=== PATIENT | male | born 1960 | race African-American/Black ===

== ENCOUNTER 2020-04-10 07:37 | Outpatient (CLI) | payer MEDICARE, MEDICAID, OTHER ==
[2020-04-10 14:15] LABS: #Eosinphils 0.1 thou/uL (0.0-0.7); #Lymphocytes 1.6 thou/uL (1.20-3.40); #Monocytes 0.7 thou/uL (0.11-0.59); #Neutrophils 5.1 thou/uL (1.40-6.50); %Basophils 0.2 % (0.0-1.0); %Eosinophils 1.1 % (0.0-10.0); %Lymphocytes 21.7 % (21.0-51.0); %Monocytes 8.7 % (0.0-10.0); %Neutrophils 68.3 % (42.0-75.0); Mean Corpuscular HGB CONC 32.1 g/dL (32.0-36.0); Mean Corpuscular Hemoglobin 29.2 pg (27.0-31.0); Mean Corpuscular Volume 91.1 fL (78.0-98.0); Mean Platelet Volume 9.3 fL (7.4-10.4); Platelet Count 260 thou/uL (130-400); RBC Distribution Width 13.2 % (11.5-14.5); Red Blood Cell (RBC) Count 4.44 mill/uL (4.70-6.10); White Blood Cell (WBC) Count 7.4 thou/uL (4.8-10.8)
[2020-04-10 15:11] LABS: Anion Gap 20 mmol/L (10-20); BUN (Urea Nitrogen) 42 mg/dL (8.4-25.7); Calc. Creatinine Clearance 0 mL/min (70-130); Carbon Dioxide 23 mmol/L (22-29); Chloride 102 mmol/L (98-107); Estimated GFR-MDRD 7; Glucose 112 mg/dL (70-105); Potassium 4.6 mmol/L (3.5-5.1); Sodium 140 mmol/L (136-145)
--- NOTE | 2020-04-11 17:29 | EKG ---
Test Reason : PREOP Blood Pressure : / mmHG Vent. Rate : 080 BPM Atrial Rate : 080 BPM P-R Int : 134 ms QRS Dur : 070 ms QT Int : 364 ms P-R-T Axes : 063 038 067 degrees QTc Int : 419 ms Normal sinus rhythm Normal ECG No previous ECGs available Confirmed by DR. Hazel RIOS ([id number]) on 04/11/2020 5:29:05 PM Referred By: Kiel HOFFMAN Confirmed By:DR. Hazel RIOS
[2020-04-12 12:45] LABS: SARS-CoV-2 MS2 Positive; SARS-CoV-2 N Gene Negative; SARS-CoV-2 S Gene Negative; SARS-CoV-2 by NAA Not Detected (NotDetected); SARS-CoV-2 orf1ab Negative
== END 2020-04-10 07:38 | disposition home or self-care (01) ==
LOC: LABBT 07:37
PROVIDERS: ATTEND Specialist
DX: Z01.818 Encounter for other preprocedural examination (principal); Z20.828 Contact with and (suspected) exposure to other viral communicable diseases; N18.6 End stage renal disease
CPT/HCPCS: 80048; 85025; 93005; U0003; 87635; 93010

== ENCOUNTER 2020-04-13 07:32 | Day surgery (SDC) | payer MEDICARE, MEDICAID ==
[2020-04-12 11:55] VITALS: BMI 29.0
[2020-04-13] MEDS ORDERED: Protamine Sulfate 50 MG/5 ML VIAL ONE (08:24)
[2020-04-13] MEDS ORDERED: Heparin 5,000 UNITS/ML VIAL ONE (08:24)
[2020-04-13] MEDS ORDERED: Lidocaine 2% PF 5 ML VIAL ONE (08:24)
[2020-04-13] MEDS ORDERED: Bupivacaine HCl 0.5%/Epinephrine 1:200,000/PF 30 ml Vial ONE ×2 (08:24→12:11)
[2020-04-13] MEDS ORDERED: Fentanyl 100 MCG/2 ML VIAL ONE ×2 (08:36→09:58)
[2020-04-13] MEDS ORDERED: Midazolam HCl 2 mg/2 ml Vial ONE (08:36)
[2020-04-13] MEDS ORDERED: Propofol 1,000 MG/100 ML VIAL IV ONE (10:04)
[2020-04-13] MEDS ORDERED: PROPOFOL 200 MG/20 ML VIAL ONE (11:48)
[2020-04-13] MEDS ORDERED: Glycopyrrolate 0.2 MG/ML 5 ML SYRINGE ONE (11:48)
[2020-04-13] MEDS ORDERED: Lidocaine 1% PF 5 ML VIAL ONE (11:48)
[2020-04-13] MEDS ORDERED: PHENYLEPHRINE-NS 100 MCG/ML 10 ML SYRINGE ONE (11:48)
[2020-04-13] MEDS ORDERED: Ondansetron PF 4 MG/2 ML Vial ONE (11:48)
[2020-04-13] MEDS ORDERED: EPHEDRINE 25 MG/5 ML SYRINGE ONE (11:48)
[2020-04-13] MEDS ORDERED: Heparin 1,000 UNITS/ML VIAL ONE (12:28)
--- NOTE | 2020-04-13 14:47 | OP ---
DATE OF PROCEDURE: 04/13/2020 PREOPERATIVE DIAGNOSES: End-stage renal disease. POSTOPERATIVE DIAGNOSIS: End-stage renal disease. PROCEDURE PERFORMED: Left arm primary AV fistula, antecubital vein to the proximal radial artery, outflow cephalic vein only, 3.5 mm coronary dilator. Exploration of the left wrist noting veins to be inadequately closed. ANESTHESIA: Regional anesthesia and TIVA anesthesia. DESCRIPTION OF PROCEDURE: The patient was taken to the operating room, where under left arm regional anesthesia and intravenous sedation, left upper extremity was prepared with ChloraPrep and draped in routine fashion. Incision made in the left wrist, exploring the cephalic vein, finding an inadequate closing of the wound, approximated the subcutaneous tissues with 3-0 Monocryl and skin with subdermal 4-0 Monocryl and [place] glue applied. Incision was made in the proximal volar forearm below the antecubital fossa longitudinally, carried down through the skin and subcutaneous tissue, antecubital vein dissected free. Perforating branch was small and was ligated with 4-0 silk tie. It was divided. There was a communicating branch in the lateral cephalic vein at the antecubital level that was ligated with 2-0 silk ties and divided. Vein was dissected free, and antecubital vein and cephalic vein of forearm dissected free, stump ligated with 3-0 silk tie, divided, spatulated, interrogated with coronary dilators, passing coronary dilators from 2 mm to 3.5 mm coronary dilator into the cephalic vein outflow without obstruction. It was flushed with heparinized saline solution. The patient given 6000 units of heparin intravenously by Anesthesia. Proximal radial artery dissected free, controlled with vascular clamps proximally and distally and longitudinal arteriotomy made sharply, elongated with Gibson scissors and end vein accordingly spatulated and end vein to side radial artery anastomosis created with continuous suture of 6-0 Prolene. After completing the anastomosis, vascular clamps were released. Doppler interrogation revealed good Doppler signal in the upper arm cephalic vein. Good hemostasis noted. The patient given 25 mg of protamine intravenously by Anesthesia. Subcutaneous tissue was approximated with 3-0 Monocryl and skin with subdermal 4-0 Monocryl, and [place] glue applied. Job ID: [id number]
== END 2020-04-13 13:05 | disposition home or self-care (01) ==
LOC: SDC 07:32
PROVIDERS: ATTEND Specialist
PROC: 031C0ZF Bypass Left Radial Artery to Lower Arm Vein, Open Approach (ICD-10-PCS; principal; 2020-04-13)
DX: I13.2 Hypertensive heart and chronic kidney disease with heart failure and with stage 5 chronic kidney disease, or end stage renal disease (principal); E11.22 Type 2 diabetes mellitus with diabetic chronic kidney disease; N18.6 End stage renal disease; I50.9 Heart failure, unspecified; Z79.4 Long term (current) use of insulin; Z79.82 Long term (current) use of aspirin; Z79.899 Other long term (current) drug therapy; Z99.2 Dependence on renal dialysis
CPT/HCPCS: 36416; J0690; J1644; J2001; J2250; J2405; J2704; J2720; J3010